=== PATIENT | male | born 1985 | race African-American/Black ===

== ENCOUNTER 2017-08-18 21:51 | Emergency (ER) | payer SELFPAY ==
[2017-08-18] MEDS ORDERED: ASPIRIN 81 MG CHEWABLE TABLET ONE (23:50)
[2017-08-19 00:01] LABS: Absolute Lymphocytes (CBC) 1.5 K/uL (0.7-4.9); Absolute Monocytes 0.6 K/uL (0.1-1.3); Basophils % 0.5 % (0-1.3); Eosinophils % 1.2 % (0-4.4); Hematocrit 41.8 % (39.6-49.0); Lymphocytes % 18.5 % (15.3-44.8); MCH 28.9 pg (27.0-35.0); MCV 85.7 fL (80-100); MPV 7.3 fL (7.6-11.3); Monocytes % 7.1 % (3.3-12.3); RBC Red Blood Cell Count 4.87 M/uL (4.33-5.43)
[2017-08-19 00:21] LABS: Protime INR 1.09
[2017-08-19 00:27] LABS: Bicarbonate 26 mEq/L (21-31); Glucose Level 130 mg/dL (65-120); Potassium 3.6 mEq/L (3.6-5.0); Sodium Level 134 mEq/L (135-145)
[2017-08-19 00:32] LABS: ALT/SGPT 17 IU/L (10-60); AST/SGOT 21 IU/L (10-42); Albumin 4.5 g/dL (3.2-5.5); Alkaline Phosphatase 60 IU/L (42-121); BUN Blood Urea Nitrogen 17 mg/dL (6-20); Bilirubin Direct < 0.1 mg/dL (0-0.2); Bilirubin Total 0.3 mg/dL (0.3-1.2); Creatine Phosphokinase 286 IU/L (22-269); Magnesium 2.1 mg/dL (1.8-2.5); Protein, Total 8.2 g/dL (6.0-8.3)
--- NOTE | 2017-08-19 00:35 | ER ---
Nurse's Notes [facility] Name: Ary Velazco III Age: 31 yrs Sex: Male : 1985 Arrival Date: 08/18/2017 Time: 21:56 Bed 23 Private MD: Diagnosis: Palpitations;Essential (primary) hypertension Presentation: 08/18 22:10 Presenting complaint: Patient states: Chest pain that started at 2000 today while aj laying down to go to sleep. Transition of care: patient was not received from another setting of care. Onset of symptoms was August 18, 2017. Care prior to arrival: None. 22:10 Method Of Arrival: Ambulatory 22:10 Acuity: SERG 3 aj Triage Assessment: 22:11 General: Appears in no apparent distress. comfortable, Behavior is calm, cooperative, aj appropriate for age. Pain: Complains of pain in chest Pain currently is 4 out of 10 on a pain scale. Neuro: Level of Consciousness is awake, alert, obeys commands, Oriented to person, place, time, situation. Cardiovascular: Reports chest pain. Respiratory: Airway is patent Respiratory effort is even, unlabored, Respiratory pattern is regular, symmetrical. Derm: Skin is intact, is healthy with good turgor, Skin is pink, warm \T\ dry. normal. Historical: - Allergies: 22:11 No Known Drug Allergies; - Home Meds: 22:11 Atenolol Oral [Active]; aj - PMHx: 22:11 Hypertension; aj - PSHx: 22:11 None; aj - Immunization history:: Adult Immunizations up to date. - Social history:: Smoking status: Patient uses tobacco products, denies chronic smoking, but will smoke occasionally. Screenin:00 Abuse screen: Denies threats or abuse. Nutritional screening: No deficits noted. rk2 Tuberculosis screening: No symptoms or risk factors identified. Fall Risk None identified. Assessment: 23:01 General: Appears in no apparent distress. well groomed, well developed, well nourished, rk2 Behavior is calm, cooperative. Pain: Pain does not radiate. Pain began. Neuro: Level of Consciousness is alert, obeys commands, Oriented to person, place, time, situation. Cardiovascular: Rhythm is sinus rhythm. Respiratory: Airway is patent Respiratory effort is even, unlabored, Respiratory pattern is regular, symmetrical, Breath sounds are clear bilaterally. Derm: Skin is pink, warm \T\ dry. 08/19 00:00 Reassessment: Pt. resting in room \T\ this time... family \T\ bedside. Pt. appears to be in rk 2 no obvious distress, no needs voiced. Vital Signs: 08/18 22:11 BP 151 / 104; Pulse 108; Resp 18; Temp 98.9; Pulse Ox 98% on R/A; Weight 113.4 kg; aj Height 5 ft. 7 in. (170.18 cm); Pain 4/10; 22:30 BP 151 / 89; Pulse 96; Resp 16; Pulse Ox 96% on R/A; rk2 22:45 BP 145 / 89; Pulse 90; Resp 17; Pulse Ox 96% on R/A; rk2 08/19 00:30 BP 128 / 88; Pulse 85; Resp 17; Pulse Ox 97% on R/A; rk2 08/18 22:11 Body Mass Index 39.16 (113.40 kg, 170.18 cm) ED Course: 08/18 21:56 Patient arrived in ED. al2 22:00 Patient has correct armband on for positive identification. Placed in gown. Bed in low rk2 position. Call light in reach. monitoring tech on. Pulse ox on. 22:00 Patient maintains SpO2 saturation greater than 95% on room air. rk2 22:10 Triage completed. aj 22:11 Arm band placed on left wrist. Patient placed in an exam room. aj 22:14 Gloria Boss, RN is Primary Nurse. rk2 22:51 Ilia Roblero MD is Attending Physician. meryl 23:23 EKG done, by ED staff, reviewed by Ilia Roblero MD. 3 23:50 XRAY Chest (1 view) In Process Unspecified. EDMS 08/19 00:34 Bal Herbert MD is Referral Physician. meryl 00:46 No provider procedures requiring assistance completed. IV discontinued. rk2 Administered Medications: 08/18 23:55 Drug: Aspirin Chewable Tablet 324 mg Route: PO; rk2 08/19 00:41 Follow up: Response: No adverse reaction rk2 Outcome: 00:34 Discharge ordered by . meryl 00:46 Discharged to home ambulatory. rk2 00:46 Condition: good 00:46 Discharge instructions given to patient, Prescriptions given X 1. 00:47 Patient left the ED. rk2 Signatures: Dispatcher [employer] Imani Sam, RN Ilia Gonzalez MD MD cha Herrera, Deanna 3 Kaimla Montgomery Rhonda, RN RN rk2
--- NOTE | 2017-08-19 00:35 | EDPHYS ---
Physician Documentation [facility] Name: Ary Velazco III Age: 31 yrs Sex: Male : 1985 Arrival Date: 08/18/2017 Time: 21:56 Bed 23 Private MD: ED Physician Ilia Roblero HPI: 08/18 23:21 This 31 yrs old Black Male presents to ER via Ambulatory with complaints of Chest Pain. meryl 23:21 The patient or guardian reports chest pain that is located primarily in the. meryl Historical: - Allergies: 22:11 No Known Drug Allergies; aj - Home Meds: 22:11 Atenolol Oral [Active]; aj - PMHx: 22:11 Hypertension; aj - PSHx: 22:11 None; aj - Immunization history:: Adult Immunizations up to date. - Social history:: Smoking status: Patient uses tobacco products, denies chronic smoking, but will smoke occasionally. ROS: 23:21 Constitutional: Negative for fever, chills, and weight loss, Eyes: Negative for injury, meryl pain, redness, and discharge, ENT: Negative for injury, pain, and discharge, Neck: Negative for injury, pain, and swelling, Respiratory: Negative for shortness of breath, cough, wheezing, and pleuritic chest pain, Abdomen/GI: Negative for abdominal pain, nausea, vomiting, diarrhea, and constipation, Back: Negative for injury and pain, : Negative for injury, bleeding, discharge, and swelling, MS/Extremity: Negative for injury and deformity, Skin: Negative for injury, rash, and discoloration, Neuro: Negative for headache, weakness, numbness, tingling, and seizure, Psych: Negative for depression, anxiety, suicide ideation, homicidal ideation, and hallucinations, Allergy/Immunology: Negative for hives, rash, and allergies, Endocrine: Negative for neck swelling, polydipsia, polyuria, polyphagia, and marked weight changes, Hematologic/Lymphatic: Negative for swollen nodes, abnormal bleeding, and unusual bruising. 23:21 Cardiovascular: Positive for palpitations. Exam: 23:21 Constitutional: This is a well developed, well nourished patient who is awake, alert, meryl and in no acute distress. Head/Face: Normocephalic, atraumatic. Eyes: Pupils equal round and reactive to light, extra-ocular motions intact. Lids and lashes normal. Conjunctiva and sclera are non-icteric and not injected. Cornea within normal limits. Periorbital areas with no swelling, redness, or edema. ENT: Nares patent. No nasal discharge, no septal abnormalities noted. Tympanic membranes are normal and external auditory canals are clear. Oropharynx with no redness, swelling, or masses, exudates, or evidence of obstruction, uvula midline. Mucous membranes moist. Neck: Trachea midline, no thyromegaly or masses palpated, and no cervical lymphadenopathy. Supple, full range of motion without nuchal rigidity, or vertebral point tenderness. No Meningismus. Chest/axilla: Normal chest wall appearance and motion. Nontender with no deformity. No lesions are appreciated. Cardiovascular: Regular rate and rhythm with a normal S1 and S2. No gallops, murmurs, or rubs. Normal PMI, no JVD. No pulse deficits. Respiratory: Lungs have equal breath sounds bilaterally, clear to auscultation and percussion. No rales, rhonchi or wheezes noted. No increased work of breathing, no retractions or nasal flaring. Abdomen/GI: Soft, non-tender, with normal bowel sounds. No distension or tympany. No guarding or rebound. No evidence of tenderness throughout. Back: No spinal tenderness. No costovertebral tenderness. Full range of motion. Male : Normal genitalia with no discharge or lesions. Skin: Warm, dry with normal turgor. Normal color with no rashes, no lesions, and no evidence of cellulitis. MS/ Extremity: Pulses equal, no cyanosis. Neurovascular intact. Full, normal range of motion. Neuro: Awake and alert, GCS 15, oriented to person, place, time, and situation. Cranial nerves II-XII grossly intact. Motor strength 5/5 in all extremities. Sensory grossly intact. Cerebellar exam normal. Normal gait. Psych: Awake, alert, with orientation to person, place and time. Behavior, mood, and affect are within normal limits. 08/19 00:34 Musculoskeletal/extremity: DVT Exam: No signs of deep vein thrombosis. no pain, no meryl swelling, no tenderness, negative Homans' sign noted on exam, no appreciated bluish discoloration, no erythema, no increased warmth. Vital Signs: 08/18 22:11 BP 151 / 104; Pulse 108; Resp 18; Temp 98.9; Pulse Ox 98% on R/A; Weight 113.4 kg; aj Height 5 ft. 7 in. (170.18 cm); Pain 4/10; 22:30 BP 151 / 89; Pulse 96; Resp 16; Pulse Ox 96% on R/A; rk2 22:45 BP 145 / 89; Pulse 90; Resp 17; Pulse Ox 96% on R/A; rk2 08/19 00:30 BP 128 / 88; Pulse 85; Resp 17; Pulse Ox 97% on R/A; 2 08/18 22:11 Body Mass Index 39.16 (113.40 kg, 170.18 cm) aj MDM: 08/18 22:51 Patient medically screened. [facility] 08/19 00:34 Data reviewed: vital signs, nurses notes, old medical records, lab test result(s), EKG, meryl radiologic studies, plain films. 08/18 23:20 Order name: Basic Metabolic Panel; Complete Time: 00:34 [facility] 08/18 23:20 Order name: BNP; Complete Time: 00:34 [facility] 08/18 23:20 Order name: CBC with Diff; Complete Time: 00:19 [facility] 08/18 23:20 Order name: Ckmb; Complete Time: 00:34 [facility] 08/18 23:20 Order name: CPK; Complete Time: 00:34 [facility] 08/18 23:20 Order name: LFT's; Complete Time: 00:34 [facility] 08/18 23:20 Order name: Magnesium; Complete Time: 00:34 [facility] 08/18 23:20 Order name: PT-INR; Complete Time: 00:31 [facility] 08/18 23:20 Order name: Ptt, Activated; Complete Time: 00:31 [facility] 08/18 23:20 Order name: Troponin (emerg Dept Use Only); Complete Time: 00:31 [facility] 08/18 23:20 Order name: XRAY Chest (1 view) [facility] 08/18 23:20 Order name: EKG; Complete Time: 23:21 [facility] 08/18 23:20 Order name: Cardiac monitoring; Complete Time: 23:24 [facility] 08/18 23:20 Order name: EKG - Nurse/Tech; Complete Time: 23:24 [facility] 08/18 23:20 Order name: IV Saline Lock; Complete Time: 00:41 [facility] 08/18 23:20 Order name: Labs collected and sent; Complete Time: 00:42 [facility] 08/18 23:20 Order name: O2 Per Protocol; Complete Time: 23:26 [facility] 08/18 23:20 Order name: O2 Sat Monitoring; Complete Time: 23:26 [facility] Administered Medications: 08/18 23:55 Drug: Aspirin Chewable Tablet 324 mg Route: PO; rk2 08/19 00:41 Follow up: Response: No adverse reaction rk2 Disposition: 08/19/17 00:34 Discharged to Home. Impression: Palpitations, Essential (primary) hypertension. - Condition is Stable. - Discharge Instructions: Hypertension, Palpitations, Hypertension, [id number], How to Take Your Blood Pressure, Auxz-ot-Mgae, Aspirin and Your Heart, Palpitations, [id number], Managing Your High Blood Pressure. - Prescriptions for Atenolol 50 mg Oral Tablet - take 1 tablet by ORAL route once daily; 30 tablet. - Medication Reconciliation Form, Thank You Letter, Antibiotic Education, Prescription Opioid Use form. - Follow up: Private Physician; When: 2 - 3 days; Reason: Recheck today's complaints, Continuance of care, Re-evaluation by your physician. Follow up: Bal Herbert; When: 2 - 3 days; Reason: Recheck today's complaints, Re-evaluation by your physician. - Problem is new. - Symptoms have improved. Signatures: Dispatcher [employer] Imani Sam, RN Ilia Gonzalez MD MD cha Kidder, Rhonda, RN RN rk2 Corrections: (The following items were deleted from the chart) 00:42 08/18 23:20 Urine Dipstick-Ancillary ordered. [facility] rk2
[2017-08-19 01:02] VITALS: TEMP 98.9
[2017-08-19 01:05] VITALS: BP 128/88; O2SAT 97
--- NOTE | 2017-08-19 08:50 | RAD REPORT ---
EXAM DESCRIPTION: RAD - Chest Single View - 08/18/2017 11:53 pm CLINICAL HISTORY: Chest pain COMPARISON: November 2016 TECHNIQUE: AP portable chest image was obtained 2341 hours . FINDINGS: No peripheral mass or consolidation. Heart size is upper normal. There is minimal prominen ce of the central vasculature and lung markings. No measurable pleural effusion and no pneumothorax. No gross bony abnormality seen. No acute aortic findings suspected. IMPRESSION: Minimal prominence of the heart, vasculature and central lung markings. Pattern is not substantially different though findings could indicate early onset of failure or volum e overload.
--- NOTE | 2017-08-21 22:46 | EKG ---
Test Date: 2017-08-18 Test Time: 22:29:06 Documentation Consultant: VIVIANA MEASUREMENT RESULTS: Intervals: Rate: 97 KS: 136 QRSD: 86 QT: 344 QTc: 436 [place]: P: 59 KS: 136 QRS: 33 T: 30 INTERPRETIVE STATEMENTS: Normal sinus rhythm Normal ECG Compared to ECG 11/26/2016 18:07:15 No significant changes Electronically Signed On 08-21-17 22:46:03 CDT by Srinath Clark
== END 2017-08-19 00:47 | disposition home or self-care (01) ==
LOC: ER 21:51
DX: I10 Essential (primary) hypertension (principal)
CPT/HCPCS: 36415; 71045; 80048; 80076; 82550; 82553; 83735; 83880; 84484; 85025; 85610; 85730; 93005; 99285